=== PATIENT | male | born 1985 | race Caucasian/White ===

== ENCOUNTER 2023-04-30 17:10 | Emergency (ER) | payer SELFPAY ==
[2023-04-30 17:20] VITALS: BP 144/94; PULSE 81; RESP 18; TEMP 36.8; O2SAT 97; BMI 25.8
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
[2023-04-30] MEDS: ketorolac 60 mg/2 mL INJ IM (18:03)
[2023-04-30 19:10] VITALS: PULSE 80; RESP 17; O2SAT 97
--- NOTE | 2023-05-01 07:42 | DCPLANNER ---
Referral was sent to ortho clinic on 05/01/23 at 07:42 am. Clinic to contact patient.
== END 2023-04-30 19:24 | disposition home or self-care (01) ==
PROVIDERS: Emergency Provider Physician Assistant
DX: S20.211A Contusion of right front wall of thorax, initial encounter (principal); S90.31XA Contusion of right foot, initial encounter; S80.01XA Contusion of right knee, initial encounter; S83.411A Sprain of medial collateral ligament of right knee, initial encounter; S16.1XXA Strain of muscle, fascia and tendon at neck level, initial encounter; V03.00XA Pedestrian on foot injured in collision with car, pick-up truck or van in nontraffic accident, initial encounter
CPT/HCPCS: 71250; 73562; 73630; 96372; 99284; J1885